=== PATIENT | female | born 1955 | race Caucasian/White ===

== ENCOUNTER 2021-08-01 14:11 | Emergency (ER) | payer OTHER, MEDICARE ==
[2021-08-01 14:23] VITALS: BMI 18.6
[2021-08-01] MEDS ORDERED: BEBTELOVIMAB (EUA) 175 MG/2 ML VIAL IVPUSH ONE (14:29)
[2021-08-01 17:00] VITALS: BP 133/72; PULSE 94; TEMP 98.7
== END 2021-08-01 18:54 | disposition home or self-care (01) ==
LOC: JCOVINFU 14:11
DX: U07.1 COVID-19 (principal)
CPT/HCPCS: 99284-25; M0222; Q0222